=== PATIENT | female | born 1980 | race Caucasian/White ===

== ENCOUNTER 2018-11-13 12:15 | Emergency (ER) | payer OTHER ==
[2018-11-13 13:38] LABS: Absolute Lymphocytes (CBC) 1.9 K/uL (0.7-4.9); Absolute Monocytes 0.8 K/uL (0.1-1.3); Absolute Neutrophil 6.8 K/uL (1.8-8.0); Basophils % 0.9 % (0-1.3); Eosinophils % 3.5 % (0-4.4); Hematocrit 34.8 % (36.0-45.0); Lymphocytes % 18.8 % (15.3-44.8); MPV 7.9 fL (7.6-11.3); Monocytes % 7.9 % (3.3-12.3); RBC Red Blood Cell Count 3.57 M/uL (3.86-4.86)
[2018-11-13] MEDS ORDERED: MORPHINE 4 MG/ML SYR ONE (13:43)
[2018-11-13] MEDS ORDERED: ONDANSETRON 4 MG/2 ML VIAL ONE (13:43)
[2018-11-13] MEDS ORDERED: NA CHLORIDE 0.9% 1,000 ML ONE (13:43)
[2018-11-13 13:52] LABS: ALT/SGPT 20 U/L (12-78); AST/SGOT 21 U/L (15-37); Albumin 3.2 g/dL (3.4-5.0); Alkaline Phosphatase 51 U/L (45-117); BUN Blood Urea Nitrogen 7 mg/dL (7-18); Bicarbonate 24 mmol/L (21-32); Bilirubin Direct < 0.1 mg/dL (0-0.2); Bilirubin Total 0.3 mg/dL (0.2-1.0); Glucose Level 69 mg/dL (74-106); Lipase 101 U/L (73-393); Potassium 3.8 mmol/L (3.5-5.1); Protein, Total 6.5 g/dL (6.4-8.2); Sodium Level 144 mmol/L (136-145)
--- NOTE | 2018-11-13 14:28 | RAD REPORT ---
EXAM DESCRIPTION: CT - Abdomen Pelvis W Contrast - 11/13/2018 2:09 pm CLINICAL HISTORY: Abdominal pain, nausea, vomiting, lap band history COMPARISON: None. TECHNIQUE: Biphasic, helical CT imaging of the abdomen and pelvis was performed following 100 ml non -ionic IV contrast. Oral contrast was given. All CT scans are performed using dose optimization technique as appropriate and may include automated exposure control or mA/KV adjustment according to patient size. FINDINGS: No suspicious findings in the lung bases. The liver, spleen, and pancreas show no suspicious findings. Gallbladder and biliary tree are also wi thout suspicious finding. Symmetric renal function is seen with no hydronephrosis or suspicious renal mass. No pyelonephritis o r acute parenchymal process. No bladder abnormalities. No adrenal abnormalities. Uterus and ovaries s how no suspicious findings. Lap band is in place. There is mild prominence of distal thoracic esophagus only partially imaged on this study. Distal to the lap band there is no gastric wall thickening mass. No dilated small bowel. No acute colon process seen. No evidence of appendicitis. No free air, free fluid or inflammatory stranding. No hernia, mass or bulky lymphadenopathy. No suspicious bony findings. IMPRESSION: Contrast enhanced CT abdomen and pelvis showing no significant or suspicious finding.
[2018-11-13] MEDS ORDERED: METOCLOPRAMIDE 10 MG/2mL INJ ONE (15:31)
--- NOTE | 2018-11-13 16:26 | EDPHYS ---
Physician Documentation [facility] Name: Washington Brown Age: 37 yrs Sex: Female : 1980 Arrival Date: 11/13/2018 Time: 12:19 Bed 19 Private MD: ED Physician Nathan Ramirez HPI: 11/13 13:06 This 37 yrs old Female presents to ER via EMS with complaints of Abdominal pm1 Pain. 13:06 The patient presents with abdominal pain in the epigastric area. Onset: The pm1 symptoms/episode began/occurred 3 week(s) ago, and became worse today. The symptoms do not radiate. Associated signs and symptoms: Pertinent positives: nausea and vomiting, Pertinent negatives: diarrhea, dysuria, fever, shortness of breath. The symptoms are described as burning. Modifying factors: The symptoms are alleviated by nothing, the symptoms are aggravated by drinking, food. Severity of pain: in the emergency department the pain is actually worse. The patient has experienced similar episodes in the past. The patient has been recently seen by a physician: with similar presenting complaints, Dr. Nuñez performed EGD last week for similar complaints of difficulty with eating foods. Patient has been on a liquid diet for 3 weeks due to difficulty with consuming food. Patient has had no problems with drinking liquids until today. It makes her vomit. 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 - Social history:: Smoking status: Patient uses tobacco products, denies chronic smoking, but will smoke occasionally. - Ebola Screening: : No symptoms or risks identified at this time. ROS: 13:06 Constitutional: Negative for fever, chills, and weight loss, Eyes: Negative for injury, pm1 pain, redness, and discharge, ENT: Negative for injury, pain, and discharge, Neck: Negative for injury, pain, and swelling, Cardiovascular: Negative for chest pain, palpitations, and edema, Respiratory: Negative for shortness of breath, cough, wheezing, and pleuritic chest pain. 13:06 Back: Negative for injury and pain, : Negative for injury, bleeding, discharge, and swelling, MS/Extremity: Negative for injury and deformity, Skin: Negative for injury, rash, and discoloration, Neuro: Negative for headache, weakness, numbness, tingling, and seizure. 13:06 Abdomen/GI: Positive for abdominal pain, nausea and vomiting, Negative for diarrhea. Exam: 13:06 Constitutional: This is a well developed, well nourished patient who is awake, alert, pm1 and in no acute distress. Head/Face: Normocephalic, atraumatic. Eyes: Pupils equal round and reactive to light, extra-ocular motions intact. Lids and lashes normal. Conjunctiva and sclera are non-icteric and not injected. Cornea within normal limits. Periorbital areas with no swelling, redness, or edema. ENT: Nares patent. No nasal discharge, no septal abnormalities noted. Tympanic membranes are normal and external auditory canals are clear. Oropharynx with no redness, swelling, or masses, exudates, or evidence of obstruction, uvula midline. Mucous membranes moist. Neck: Trachea midline, no thyromegaly or masses palpated, and no cervical lymphadenopathy. Supple, full range of motion without nuchal rigidity, or vertebral point tenderness. No Meningismus. Chest/axilla: Normal chest wall appearance and motion. Nontender with no deformity. No lesions are appreciated. Cardiovascular: Regular rate and rhythm with a normal S1 and S2. No gallops, murmurs, or rubs. Normal PMI, no JVD. No pulse deficits. Respiratory: Lungs have equal breath sounds bilaterally, clear to auscultation and percussion. No rales, rhonchi or wheezes noted. No increased work of breathing, no retractions or nasal flaring. 13:06 Back: No spinal tenderness. No costovertebral tenderness. Full range of motion. Skin: Warm, dry with normal turgor. Normal color with no rashes, no lesions, and no evidence of cellulitis. MS/ Extremity: Pulses equal, no cyanosis. Neurovascular intact. Full, normal range of motion. 13:06 Abdomen/GI: Inspection: abdomen appears normal, Bowel sounds: normal, Palpation: soft, mild abdominal tenderness, in the epigastric area, mass, is not appreciated, rebound tenderness, is not appreciated. 13:06 Neuro: Orientation: is normal, Motor: is normal, moves all fours, Gait: is steady, at a normal pace, without difficulty. Vital Signs: 12:22 BP 163 / 111; Pulse 89; Resp 18; Temp 99.3(O); Pulse Ox 100% on R/A; Weight 68.04 kg; ph Height 5 ft. 4 in. (162.56 cm); Pain 5/10; 13:29 BP 161 / 102; Pulse 88; Resp 18; Temp 98.5(O); Pulse Ox 100% on R/A; mh5 14:39 BP 150 / 96; Pulse 89; Resp 18; Temp 98.2(O); Pulse Ox 100% on R/A; mh5 15:21 BP 132 / 90; Pulse 80; Resp 18; Temp 97.8(O); Pulse Ox 100% on R/A; mh5 16:20 BP 130 / 85; Pulse 80; Resp 16; Pulse Ox 99% on R/A; ae4 17:30 BP 123 / 81; Pulse 82; Resp 17; Pulse Ox 99% on R/A; ae4 12:22 Body Mass Index 25.75 (68.04 kg, 162.56 cm) ph MDM: 12:47 Patient medically screened. pm1 15:31 Data reviewed: vital signs. Data interpreted: Pulse oximetry: on room air is 100 %. pm1 Interpretation: normal. 16:23 Counseling: I had a detailed discussion with the patient and/or guardian regarding: the pm1 historical points, exam findings, and any diagnostic results supporting the discharge/admit diagnosis, lab results, radiology results, the need for outpatient follow up, to return to the emergency department if symptoms worsen or persist or if there are any questions or concerns that arise at home. 11/13 12:47 Order name: Basic Metabolic Panel; Complete Time: 13:55 pm1 11/13 12:47 Order name: CBC with Diff; Complete Time: 13:55 pm1 11/13 12:47 Order name: Creatinine for Radiology; Complete Time: 13:55 pm1 11/13 12:47 Order name: Hepatic Function; Complete Time: 13:55 pm1 11/13 12:47 Order name: Lipase; Complete Time: 13:55 pm1 11/13 12:47 Order name: CT Abd/Pelvis - W/Contrast: IV contrast only; Complete Time: 14:36 pm1 11/13 12:47 Order name: IV Saline Lock; Complete Time: 13:54 pm1 11/13 12:47 Order name: Labs collected and sent; Complete Time: 13:54 pm1 11/13 12:47 Order name: Urine Dipstick-Ancillary (obtain specimen); Complete Time: 13:54 pm1 11/13 12:47 Order name: Urine Test (obtain specimen); Complete Time: 14:01 pm1 11/13 15:05 Order name: PO challenge; Complete Time: 15:27 pm1 Administered Medications: 13:30 Drug: NS 0.9% 1000 ml Route: IV; Rate: 1000 ml; Site: right antecubital; ae3 15:00 Follow up: IV Status: Completed infusion ae4 13:30 Drug: Zofran 4 mg Route: IVP; Site: right antecubital; ae3 14:32 Follow up: Response: Nausea is decreased ae4 13:33 Drug: morphine 4 mg Route: IVP; Site: right antecubital; ae3 14:32 Follow up: Response: Pain is decreased ae4 15:20 Drug: Reglan 10 mg Route: IVP; Site: right antecubital; ae4 17:29 Follow up: Response: Pain is unchanged, physician notified ae4 16:52 Drug: Phenergan 12.5 mg Route: IVP; Site: right antecubital; ae4 17:30 Follow up: Response: Pain is decreased; Nausea is decreased ae4 Disposition: 19:52 Co-signature as Attending Physician, Nathan Ramirez MD. ma2 Disposition: 11/13/18 16:25 Discharged to Home. Impression: Gastritis, unspecified. - Condition is Stable. - Discharge Instructions: Gastritis, Adult. - Prescriptions for Zofran 4 mg Oral Tablet - take 1 tablet by ORAL route every 12 hours As needed; 20 tablet. promethazine 25 mg Oral Tablet - take 1 tablet by ORAL route every 6 hours As needed; 20 tablet. - Medication Reconciliation Form, Thank You Letter, Antibiotic Education, Prescription Opioid Use form. - Follow up: Emergency Department; When: As needed; Reason: Worsening of condition. Follow up: Dagoberto Nuñez MD; When: 2 - 3 days; Reason: Recheck today's complaints, Continuance of care, Re-evaluation by your physician. - Problem is new. - Symptoms have improved. Signatures: Dispatcher [employer] EDRadha Johnson, RN RN ph Amadeo Casper, SANDWICH WRAPPER SANDWICH WRAPPER pm1 Nathan Ramirez MD MD ma2 Lavern Garcia ae3 Raffaele Zuluaga, RN RN ae4 Corrections: (The following items were deleted from the chart) 17:31 16:25 11/13/2018 16:25 Discharged to Home. Impression: Gastritis, unspecified. ae4 Condition is Stable. Forms are Medication Reconciliation Form, Thank You Letter, Antibiotic Education, Prescription Opioid Use. Follow up: Emergency Department; When: As needed; Reason: Worsening of condition. Follow up: Dagoberto Nuñez; When: 2 - 3 days; Reason: Recheck today's complaints, Continuance of care, Re-evaluation by your physician. Problem is new. Symptoms have improved. pm1
--- NOTE | 2018-11-13 16:26 | ER ---
Nurse's Notes [facility] Name: Washington Brown Age: 37 yrs Sex: Female : 1980 Arrival Date: 11/13/2018 Time: 12:19 Bed 19 Private MD: Diagnosis: Gastritis, unspecified Presentation: 11/13 12:19 Presenting complaint: EMS states: Pt hx of lap band procedure in 2010, reports having ph "issues" passing solid food for a few weeks but has been able to drink broths and fluids until today, states that when she swallows it comes back up immediately, also c/o fatigue, generalized weakness, and epigastric discomfort. Transition of care: patient was not received from another setting of care. Onset of symptoms was November 13, 2018. Risk Assessment: Do you want to hurt yourself or someone else? Patient reports no desire to harm self or others. Initial Sepsis Screen: Does the patient meet any 2 criteria? No. Patient's initial sepsis screen is negative. Does the patient have a suspected source of infection? No. Patient's initial sepsis screen is negative. 12:19 Method Of Arrival: EMS: [facility] 12:19 Acuity: CIRA 3 ph 12:24 Care prior to arrival: Medication(s) given: Normal saline infusion, 250 mL IV ph initiated. 20 GA, in the right antecubital area, Glucose check: 69. Triage Assessment: 16:21 General: Appears in no apparent distress. uncomfortable, Behavior is calm, cooperative. ae4 Pain: Complains of pain in abdomen. 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 - Social history:: Smoking status: Patient uses tobacco products, denies chronic smoking, but will smoke occasionally. - Ebola Screening: : No symptoms or risks identified at this time. Screenin:21 Abuse screen: Denies threats or abuse. Nutritional screening: No deficits noted. ae4 Tuberculosis screening: No symptoms or risk factors identified. Fall Risk None identified. Assessment: 14:34 Reassessment: Patient appears in no apparent distress at this time. Reassessment: ae4 Patient states feeling better. Vital Signs: 12:22 BP 163 / 111; Pulse 89; Resp 18; Temp 99.3(O); Pulse Ox 100% on R/A; Weight 68.04 kg; ph Height 5 ft. 4 in. (162.56 cm); Pain 5/10; 13:29 BP 161 / 102; Pulse 88; Resp 18; Temp 98.5(O); Pulse Ox 100% on R/A; mh5 14:39 BP 150 / 96; Pulse 89; Resp 18; Temp 98.2(O); Pulse Ox 100% on R/A; mh5 15:21 BP 132 / 90; Pulse 80; Resp 18; Temp 97.8(O); Pulse Ox 100% on R/A; mh5 16:20 BP 130 / 85; Pulse 80; Resp 16; Pulse Ox 99% on R/A; ae4 17:30 BP 123 / 81; Pulse 82; Resp 17; Pulse Ox 99% on R/A; ae4 12:22 Body Mass Index 25.75 (68.04 kg, 162.56 cm) ph ED Course: 12:19 Patient arrived in ED. ph 12:22 Triage completed. ph 12:25 Arm band placed on Patient placed in an exam room, on a stretcher. ph 12:30 Amadeo Casper NP is PHCP. pm1 12:30 Nathan Raimrez MD is Attending Physician. pm1 13:51 Radiology exam delayed due to lab results not completed at this time. (BUN/Creatinine) kw1 test not completed at this time. 13:58 Raffaele Zuluaga, BARB is Primary Nurse. ae4 14:01 Patient has correct armband on for positive identification. Placed in gown. Bed in low mh5 position. Call light in reach. Side rails up X 1. Adult w/ patient. Warm blanket given. Pillow given. Pulse ox on. NIBP on. 14:01 Urine collected: clean catch specimen, clear. mh5 14:10 CT Abd/Pelvis - W/Contrast: IV contrast only In Process Unspecified. EDMS 16:25 Dagoberto Nuñez MD is Referral Physician. pm1 17:30 No provider procedures requiring assistance completed. IV discontinued, intact, ae4 bleeding controlled, No redness/swelling at site. Pressure dressing applied. Administered Medications: 13:30 Drug: NS 0.9% 1000 ml Route: IV; Rate: 1000 ml; Site: right antecubital; ae3 15:00 Follow up: IV Status: Completed infusion ae4 13:30 Drug: Zofran 4 mg Route: IVP; Site: right antecubital; ae3 14:32 Follow up: Response: Nausea is decreased ae4 13:33 Drug: morphine 4 mg Route: IVP; Site: right antecubital; ae3 14:32 Follow up: Response: Pain is decreased ae4 15:20 Drug: Reglan 10 mg Route: IVP; Site: right antecubital; ae4 17:29 Follow up: Response: Pain is unchanged, physician notified ae4 16:52 Drug: Phenergan 12.5 mg Route: IVP; Site: right antecubital; ae4 17:30 Follow up: Response: Pain is decreased; Nausea is decreased ae4 Outcome: 16:25 Discharge ordered by MD. pm1 17:31 Discharged to home ambulatory, with family. ae4 17:31 Condition: stable 17:31 Discharge instructions given to patient, Instructed on discharge instructions, follow up and referral plans. medication usage, Demonstrated understanding of instructions, Prescriptions given X 2. 17:31 Patient left the ED. ae4 Signatures: Dispatcher [employer] EDRadha Johnson, BARB RN Amadeo Casper, PROJECT SYSTEMS ENGINEER PROJECT SYSTEMS ENGINEER pm1 Vane Ruvalcaba mh5 Roseline Ellis Andie ae3 Raffaele Zuluaga RN RN ae4 Corrections: (The following items were deleted from the chart) 12:24 12:19 Care prior to arrival: None. ph ph 14:40 14:33 BP 150 / 96; Pulse 91bpm; Resp 17bpm; Pulse Ox 99% RA; ae4 mh5
[2018-11-13] MEDS ORDERED: PROMETHAZINE 25 MG/ML VIAL ONE (17:07)
== END 2018-11-13 17:31 | disposition home or self-care (01) ==
LOC: ER 12:15
DX: K29.70 Gastritis, unspecified, without bleeding (principal); I10 Essential (primary) hypertension; Z72.0 Tobacco use
CPT/HCPCS: 36415; 74177; 80048; 80076; 83690; 85025; 96361; 96374; 96375; 99284; J2405; J2550; J2765; J7030; Q9967